=== PATIENT | female | born 1995 | race Caucasian/White ===

== ENCOUNTER 2016-08-27 20:35 | Emergency (ER) | payer OTHER ==
[~2016-08-27] VITALS: Ht 162.6 cm; Wt 69.9 kg
[2016-08-27 20:44] VITALS: Ht 162.6 cm; Wt 69.9 kg
[2016-08-27 21:41] LABS: BUN/CREATININE RATIO 8.5 (10-20); CALCIUM 9.2 mg/dl (8.5-10.1); CREATININE 0.68 mg/dl (0.60-1.20); POTASSIUM 3.9 mmol/L (3.5-5.1)
[2016-08-27 21:46] LABS: PREG INTERNAL NEGATIVE QC NEG CLEAR BACKGROUND; PREG INTERNAL POSITIVE QC POS CONTROL LINE
[2016-08-28 00:37] VITALS: TEMP 37
[2016-08-28] MEDS ORDERED: CEFTRIAXONE SOD 350MG/ML 1 GM VIAL IM STA (01:05)
[2016-08-28] MEDS ORDERED: AZITHROMYCIN 250 MG TAB PO STA (01:05)
[2016-08-28 01:45] VITALS: BP 117/85; PULSE 102; O2SAT 100
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
== END 2016-08-28 02:33 | disposition home or self-care (01) ==
LOC: C.EDB 20:38
DX: T74.21XA Adult sexual abuse, confirmed, initial encounter (principal); Y07.9 Unspecified perpetrator of maltreatment and neglect; Y99.8 Other external cause status

== ENCOUNTER 2017-12-02 05:29 | Emergency (ER) | payer BC, OTHER ==
[~2017-12-02] VITALS: Ht 165.1 cm; Wt 74.0 kg
[2017-12-02 05:32] VITALS: TEMP 36.2; Ht 165.1 cm; Wt 74.0 kg
[2017-12-02] MEDS ORDERED: LIDOCAINE 1% BUFFERED INJ 5 ML VIAL INFIL ONE (05:44)
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
[2017-12-02 06:29] VITALS: BP 138/95; PULSE 119; O2SAT 98
== END 2017-12-02 06:37 | disposition home or self-care (01) ==
LOC: C.EDB 05:30 → C.EDA 06:37
DX: S71.111A Laceration without foreign body, right thigh, initial encounter (principal); W25.XXXA Contact with sharp glass, initial encounter; Z04.71 Encounter for examination and observation following alleged adult physical abuse